=== PATIENT | female | born 1995 | race Caucasian/White ===

== ENCOUNTER 2018-06-22 09:26 | Emergency (ER) | payer SELFPAY ==
[2018-06-22] MEDS: DIPHTH/TET/ACEL PERTUSS (ADULT) 0.5 ML VIAL IM* (10:56)
[2018-06-22] MEDS: ACETAMINOPHEN 325 MG TAB PO (10:56)
== END 2018-06-22 11:30 | disposition home or self-care (01) ==
LOC: FTE 09:26
DX: S01.81XA Laceration without foreign body of other part of head, initial encounter (principal); W10.9XXA Fall (on) (from) unspecified stairs and steps, initial encounter; Y92.9 Unspecified place or not applicable; Z23 Encounter for immunization
CPT/HCPCS: 12011; 90471; 90715; 99283-25

== ENCOUNTER 2018-07-02 05:51 | Emergency (ER) | payer SELFPAY | END 2018-07-02 06:38 | disposition home or self-care (01) | LOC: FTE 05:51 | DX: Z48.02 Encounter for removal of sutures (principal) | CPT/HCPCS: 99281 ==